=== PATIENT | male | born 1995 | race Caucasian/White ===

== ENCOUNTER 2019-05-23 21:41 | Outpatient (REF) | payer BC, SELFPAY ==
[2019-05-23 22:09] LABS: HCT 44.2 % (40.0-50.0); HGB 14.8 g/dL (13.5-17.5); Mean Corp. HGB Concentration 33.5 g/dL (32.0-36.0); Mean Corpuscular Hemoglobin 30.6 pg (27.0-33.0); Mean Corpuscular Volume 91.5 fL (80-95); Mean Platelet Volume 11.9 fL (8.0-11.0); Platelet Count 239 x1000/uL (130-400); RBC 4.83 m/cumm (4.50-6.00); RBC Distribution Width 13.3 % (11.8-14.1)
[2019-05-23 22:27] LABS: Anion Gap 4.2 mmol/L (3-11); BUN 11 mg/dL (7-18); CO2 33.8 mmol/L (21.0-32.0); CREATININE 1.04 mg/dL (0.70-1.30); Calcium 8.7 mg/dL (8.5-10.1); Chloride 104 mmol/L (98-107); Glucose 90 mg/dL (74-106); Potassium 4.6 mmol/L (3.5-5.1); Sodium 142 mmol/L (136-145); TSH (W/Ref FT4) 1.04 uIU/mL (0.36-3.74)
[2019-05-23 22:38] LABS: Vitamin D 25 Total 34.7 ng/ml (30-100)
== END 2019-05-23 22:01 ==
LOC: NCHCN 21:41
PROVIDERS: Visit Provider Nurse Practitioner Family
DX: F43.23 Adjustment disorder with mixed anxiety and depressed mood (principal)
CPT/HCPCS: 80048; 82306; 85027; 84443

== ENCOUNTER 2025-02-05 01:55 | Outpatient (CLI) | payer OTHER, SELFPAY ==
[2025-02-06 20:58] LABS: HIV-1/2 Ag & Ab Screen Negative (Negative)
[2025-02-06 21:03] LABS: Hepatitis A Antibody IgM Negative (Negative); Hepatitis C Ab w Rflx HCV PCR Negative (Negative)
[2025-02-07 11:49] LABS: Chlamydia Result Negative (Negative); GC Result Negative (Negative)
[2025-02-10 16:59] LABS: Syphilis IgG w/Reflex Nonreactive (Nonreactive)
== END 2025-02-05 01:56 | disposition home or self-care (01) ==
PROVIDERS: Visit Provider Nurse Practitioner Adult Health
DX: Z11.4 Encounter for screening for human immunodeficiency virus [HIV] (principal); Z11.59 Encounter for screening for other viral diseases
CPT/HCPCS: 36415; 86704; 86709; 86803; 87340; 87389; 87491; 87591; 86780